=== PATIENT | female | born 1965 | race Caucasian/White ===

== ENCOUNTER 2024-01-05 20:24 | Emergency (ER) | payer MEDICARE, OTHER, SELFPAY ==
[2024-01-05 20:26] VITALS: BP 135/99; PULSE 83; RESP 16; TEMP 36.7; O2SAT 98; BMI 16.2
--- NOTE | 2024-01-05 20:34 | CTR_ITS ---
PROCEDURE INFORMATION: Exam: CT Head Without Contrast Exam date and time: 01/05/2024 8:47 PM Age: 58 years old Clinical indication: Weakness, facial; Patient HX: Patient noticed left facial droop at 1000 hours today that has not resolved. No other neuro symptoms. History of tongue cancer. ; Additional info: Miller's palsy. Rule out stroke or hemorrhage TECHNIQUE: Imaging protocol: Computed tomography of the head without contrast. Radiation optimization: All CT scans at this facility use at least one of these dose optimization techniques: automated exposure control; mA and/or kV adjustment per patient size (includes targeted exams where dose is matched to clinical indication); or iterative reconstruction. COMPARISON: No relevant prior studies available. RADIATION DOSE METRICS: Total DLP (mGy-cm): 944.48 FINDINGS: Brain: No hemorrhage. Unremarkable white matter. No mass effect. Preserved deutsch-white interfaces. Cerebral ventricles: No ventriculomegaly. Paranasal sinuses: Visualized sinuses are unremarkable. No fluid levels. Mastoid air cells: Visualized mastoid air cells are well aerated. Bones: Unremarkable. No acute fracture. Soft tissues: Unremarkable. CT/CT head wo con* [id number] IMPRESSION: No evidence of acute intracranial hemorrhage, mass effect, or edema.
--- NOTE | 2024-01-05 20:35 | ED_ITS ---
HPI - Neuro Symptoms/Deficit General: Chief Complaint: Neuro Symptoms/Deficit Stated Complaint: stroke symptoms Time Seen by Provider: 01/05/24 20:30 History of Present Illness: 58-year-old female with a history of kid beverley transplant who presents emergency room with left-sided facial droop. This started this morning she believes. No other deficits. No confusion. No slurred speech. No focal motor deficits. This involves the eyebrow the eyelid and her left mouth. No fevers. No headache. Blood pressure is normal on arrival. Review of Systems Narrative: Constitutional symptoms: Negative except as documented in HPI. Skin symptoms: Negative except as documented in HPI. Eye symptoms: Negative except as documented in HPI. ENMT symptoms: Negative except as documented in HPI. Respiratory symptoms: Negative except as documented in HPI. Cardiovascular symptoms: Negative except as documented in HPI. Gastrointestinal symptoms: Negative except as documented in HPI. Genitourinary symptoms: Negative except as documented in HPI. Musculoskeletal symptoms: Negative except as documented in HPI. Neurologic symptoms: Negative except as documented in HPI. Psychiatric symptoms: Negative except as documented in HPI. Endocrine symptoms: Negative except as documented in HPI. Physical Exam Narrative: EXAM NARRATIVE: General: Alert, no acute distress. Skin: Warm, dry. Head: Normocephalic, atraumatic. Neck: Supple, trachea midline. Eye: Extraocular movements are intact. Ears, nose, mouth and throat: mucosa moist. Cardiovascular: Regular, Normal peripheral perfusion. Respiratory: Lungs are clear to auscultation, respirations are non-labored, breath sounds are equal, Symmetrical chest wall expansion. Gastrointestinal: Soft, Nontender, Non distended, Normal bowel sounds. Musculoskeletal: Normal ROM, no deformity. Neurological: Alert and oriented, patient has left facial paralysis. Difficulty with left smile. Difficulty closing left eyelid. Difficulty raising left eyebrow.. Psychiatric: Cooperative, appropriate mood & affect. Course Vital Signs: Vital signs: Vital Signs Temperature 98.0 F 01/05/24 20:26 Pulse Rate 83 01/05/24 20:26 Respiratory Rate 16 01/05/24 20:26 Blood Pressure 135/99 01/05/24 20:26 Pulse Oximetry 98 01/05/24 20:26 Oxygen Delivery Me thod Room Air 01/05/24 20:26 MDM - Neuro Symptoms/Deficit Medical Decision Making Medical decision making: Differential diagnosis including but not limited to and based on the above HPI, review of systems and physical exam: Patient has what appears to be a simple Bel l's palsy. A CT scan was ordered to rule out any kind of stroke or bleeding which is very unlikely. She has history of a kidney transplant so given that I am going to put her on medications going to get a CBC and BMP to evaluate for her renal function. Orders placed to evaluate differential diagnosis based on the above differential, HPI and physical exam Lab Review: Laboratory results were reviewed and interpreted by myself the emergency room physician. Lab work is pending at shift change. Dr. Croft will follow-up on the labs and if renal function is okay we will continue her current doses valacyclovir CT head: No acute intracranial process. no intracranial hemorrhage, no evidence of infarct. no evidence of acute fracture.This was reviewed and interpreted by myself the ER physician. I reviewed the patient's medical record. Assessment and plan: Miller's palsy ?IV Solu-Medrol and oral valacyclovir in the emergency room. - Discharged home - Discussed plan with patient. Answered any questions. - Evaluation and treatment of this problem were appropriate in the emergency setting. Lab Data Radiology Impressions Head CT 01/05/24 20:34 IMPRESSION: No evidence of acute intracranial hemorrhage, mass effect, or edema. Laboratory Results POC Glucose 134 mg/dL (70-110) H 01/05/24 20:35 All radiology interpretation(s) finalized by discharge Discharge Plan Discharge Patient Disposition: Home Condition: Stable Prescriptions: New prednisone 20 mg tablet 60 mg PO DAILY Qty: 20 0RF Rx Instructions: 3 tabs (60 mg) x 3 days. 2 tabs (40 mg) x 3 days. 1 tab (20 mg) x 3 days. 1/2 tab (10 mg) x 4 days valacyclovir 1 gram tablet 1,000 mg PO Q12H 10 Days Qty: 20 0RF Discharge Orders: Discharge ED (Routine); Ordered 01/05/24 Ordered By: Crystal Araya Discharge Diet: Usual diet Discharge Activity: Resume usual activity Patient Instructions: Miller Palsy (ED) Activity Restrictions/Additional Instructions: Please apply artificial tears to the left eye several times a day. Please apply an eye patch or tape your eye shut while you sleep to avoid ocular abrasions. Please take medications as instructed. Thank you for choosing [facility] for your healthcare needs today. Please realize this is an emergency room and that we are providing you with a medical screening exam and this may not be complete and all inclusive of all the testing and or work up that you may need to determine your ailment or severity of your illness. You have been screened and evaluated and felt safe for discharge. Health conditions do change or evolve sometimes and as such it is important that you follow up with your Primary Doctor to be re checked, 3-5 days is a general good time frame for follow up. You are always welcome to return to the ED for re assessment if your symptoms are worsening or you have new concerns Coding Level of Care Code ED P[employer] Supervisor for Yeimy Allen
[2024-01-05 20:38] LABS: Glucose Point of Care 134 mg/dL (70-110)
[2024-01-05 21:00] VITALS: BP 158/104; PULSE 80; RESP 14; O2SAT 98
[2024-01-05 21:30] VITALS: BP 128/87; PULSE 80; RESP 18; O2SAT 98
[2024-01-05] MEDS: methylPREDNISolone sod succ 125 mg/2 mL INJ IVP (21:51)
[2024-01-05] MEDS: valACYclovir 1,000 mg Tablet 1000 MG PO (21:51)
[2024-01-05 22:00] VITALS: PULSE 80; O2SAT 94
[2024-01-05 22:04] LABS: Basophils # 0.1 10^3/uL (0.0-0.1); Basophils % 0.7 %; Eosinophils # 0.1 10^3/uL (0.0-0.8); Eosinophils % 0.7 %; Hematocrit 38.6 % (36-47); Lymphocytes # 0.6 10^3/uL (0.8-4.8); Lymphocytes % 7.5 %; Mean Corpuscular HGB Conc 33.9 g/dL (30-55); Mean Corpuscular Hemoglobin 29.7 pg (27-33); Mean Corpuscular Volume 87.5 fl (85-98); Mean Platelet Volume 9.6 fL (7.4-10.4); Monocytes # 0.5 10^3/uL (0.2-0.9); Monocytes % 6.4 %; Neutrophils # 6.45 10^3/uL (1.8-7.7); Neutrophils % 84.3 %; Nucleated Red Blood Cells % 0 %; Platelet Count 250 10^3/cmm (157-399); Red Blood Count 4.41 10^6/uL (3.85-5.65); Red Cell Distribution Width 13.3 % (12.1-15.1); White Blood Count 7.64 10^3/uL (3.29-11.43)
[2024-01-05 22:22] LABS: Blood Urea Nitrogen 31 mg/dL (6-20); Calcium 9.3 mg/dL (8.5-10.5); Carbon Dioxide 21 mmol/L (22-29); Chloride 94 mmol/L (98-107); Creatinine Clr Calc Pharmacy 40.0742; Glomerular Filtration Rate 51.4 mL/min (90-130); Glucose 100 mg/dL (65-115); Osmolality Calculated 273 mOsm/kg (285-295); Sodium 128 mmol/L (136-145)
[2024-01-05 22:27] LABS: Anion Gap 16.8 (5-19); Potassium 3.8 mmol/L (3.5-5.1)
[2024-01-06 00:24] VITALS: BP 150/102; PULSE 79; RESP 18; O2SAT 98
== END 2024-01-05 22:55 | disposition home or self-care (01) ==
PROVIDERS: Emergency Provider Emergency Medicine
DX: Z94.0 Kidney transplant status (principal); G51.0 Bell's palsy
CPT/HCPCS: 36416; 70450; 80048; 82962; 85025; 96374; 99285; J2919